=== PATIENT | female | born 1970 | race Caucasian/White ===

== ENCOUNTER 2018-08-19 20:34 | Emergency (ER) | payer OTHER ==
[~2018-08-19] VITALS: Wt 59.0 kg
[2018-08-19] MEDS ORDERED: KETOROLAC 60 MG INJ IM STA (21:42)
[2018-08-19] MEDS ORDERED: HYDROCODONE/APAP (5/325) TAB PO ONE (22:00)
--- NOTE | 2018-08-19 22:00 | ERD ---
ER Documentation Chief Complaint Chief Complaint bilateral knee pain x 2 weeks, denies trauma HPI 47-year-old female presents with complaint of bilateral knee pain for the past 2 weeks. States that she has not had any pain in the past. Denies any trauma. 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 States that the pain is made worse with squatting and going up and down stairs. States that there is no tenderness to palpation. She is currently taking meloxicam and diclofenac gel. Denies any impaired range of motion, weakness, n umbness, tingling, fevers, erythema, chills ROS All systems reviewed and are negative except as per history of present illness. Allergies Allergies: Coded Allergies: No Known Drug Allergies (Verified Allergy, Unknown, 08/19/18) PMhx/Soc Medical and Surgical Hx: pt denies Medical Hx, pt denies Surgical Hx Hx Alcohol Use: No Hx Substance Use: No Hx Tobacco Use: No Smoking Status: Never smoker Physical Exam Vitals Vital Signs Date Temp Pulse Resp B/P (MAP) Pulse Ox O2 O2 Flow FiO2 Time Delivery Rate 08/19/18 98.5 78 20 110/65 99 20:38 (80) Physical Exam Const: No acute distress Head: Atraumatic Eyes: Normal Conjunctiva ENT: Normal External Ears, Nose and Mouth. Neck: Full range of motion. No meningismus. Resp: Clear to auscultation bilaterally Cardio: Regular rate and rhythm, no murmurs Abd: Soft, non tender, non distended. Normal bowel sounds Skin: No petechiae or rashes Back: No midline or flank tenderness Neur: Awake and alert Psych: Normal Mood and Affect lower Extremity - bilateral: Skin: No laceration Compartments: Soft Motor: Full active range of motion hip/knee/ankle/foot Sensation: Intact to light touch FDWS/MF/LF/P surfaces. Bones: Nontender pelvis/knee/proximal tibia/ malleoli/foot Joints: No effusion or laxity Pulses/Perfusion: 2+ DP, Capillary refill < 2 seconds Squatting elicits pain. There is no tenderness to palpation over the knees dariana aterally. There is no erythema, edema, or bony deformity noted. Results 24 hrs Laboratory Tests Test 08/19/18 21:49 POC Beta HCG, Qualitative NEGATIVE Current Medications Medications Dose Sig/Krystle Start Time Status Last (Trade) Ordered Route PRN Stop Time Admin Dose Reason Admin Ketorolac 60 mg ONCE STAT 08/19/18 DC Tromethamine IM 21:42 (Toradol) 08/19/18 21:45 1 tab ONCE ONCE 08/19/18 DC 08/19/18 Acetaminophen PO 22:00 21:50 / 08/19/18 22:01 Hydrocodone Bitart ([place] ()) Procedures/MDM DIAGNOSTIC IMAGING REPORT Patient: CAM YU : 1970 Age: 47 Sex: F MR #: [id number] DOS: 08/19/18 2144 Ordering MD: MAITE CRYSTAL Location: [facility] Room/Bed: PROCEDURE: XR Knees. CLINICAL INDICATION: Bilateral knee pain. No history of trauma. TECHNIQUE: Total of eight views. Weightbearing frontal, oblique, and lateral views of the both knees. Patellar views of both knees. COMPARISON: No prior study is available for comparison. FINDINGS: There is no fracture or dislocation. The soft tissues are normal. Articular surfaces are intact. There are small osteophytes arising from all 3 joint compartment margins bilaterally. There is no lytic or blastic lesion. There is no radiopaque foreign body. IMPRESSION: 1. Mild degenerative change. 2. Otherwise unremarkable images of both knees. RPTAT: QQ .Sam Ahmadi MD, MD Date Time Electronically viewed and signed by .Sam Ahmadi MD, on 08/19/2018 22:15 .R/ CC: MAITE CRYSTAL [id number] MDM: There is low suspicion for fracture, however patient requested x-rays to rule out possible osteoarthritis. I feel that this is appropriate given the acute nature of patient's condition. X-rays show mild degenerative changes possibly consistent with osteo-arthritis but no fractures or dislocations. Patient's presentation is consistent with osteo-otitis versus patellofemoral syndrome. Patient advised that if she needs to see her primary care and possibly follow-up with physical therapy. I have low suspicion for neurovascular compromise, septic bursitis, compartment syndrome, fracture, osteomyelitis, septic joint, or other emergent condition. Patient discharged with strict ER precautions. Patient advised to follow up with PMD. All questions answered at discharge. Departure Diagnosis: Primary Impression: Knee pain Chronicity: acute Laterality: bilateral Qualified Codes: M25.561 - Pain in right knee; M25.562 - Pain in left knee Condition: MAITE Hansen August 19, 2018 22:00
[2018-08-19] MEDS ORDERED: HYDR-4011 PO (22:55)
[2018-08-19] MEDS ORDERED: IBUP-1542 PO (22:55)
[2018-08-19 23:30] VITALS: BP 114/65; PULSE 70; RESP 20
== END 2018-08-19 23:30 | disposition home or self-care (01) ==
LOC: FTE 20:34
DX: M25.561 Pain in right knee (principal); M25.562 Pain in left knee
CPT/HCPCS: 73564; 81025; Z7502; Z7610; J1885